=== PATIENT | female | born 1965 | race Caucasian/White ===

== ENCOUNTER 2017-11-05 07:33 | Inpatient (IN) ==
--- NOTE | 2017-11-03 18:03 | MH ---
cc: Rosangela Persaud MD DATE OF ADMISSION: 11/05/2017 HISTORY OF PRESENT ILLNESS: The patient is a 52-year-old white female, G1, P1, menopausal for 2 years, who presented to the office in October as a followup to finally getting her ultrasound done, which we ordered last year. She has been having a 2-year history of on and off left lower quadrant pain. She describes the pain as more dull in nature. It is not sharp, but does not really have any other associated symptoms, but it has been persistently present. The ultrasound did show she has a 2.9 cm fibroid in the left lateral side of the uterus. We have a comparison from 2010, where she was premenopausal where it did not show any fibroids. At that time in 2010, she did have a left ovarian cyst. I have discussed with her the significance of developing a fibroid postmenopausally especially one that is giving her pain in that we should try to have some type of tissue diagnosis on this fibroid because it raises the increased risk of a possible malignancy associated with the development postmenopausally. The patient understands that and she desires to proceed with surgery to remove the uterus in total along with the tubes and ovaries and send that for frozen section to see what is the makeup of this new fibroid. She is aware of the risks of the surgery including, and not limited to infection, bleeding, damage to internal organs requiring repair. PAST MEDICAL HISTORY: Negative. PAST SURGICAL HISTORY: Dilatation and curettage. MEDICATIONS: Currently are none. ALLERGIES: NONE. SOCIAL HISTORY: No tobacco, alcohol or drug use. She lives with her family and works. She is employed. FAMILY HISTORY: Noncontributory. D[employer]PERVISOR HISTORY: No abnormal Paps. No STDs. OB HISTORY: x1. REVIEW OF SYSTEMS: Negative. PHYSICAL EXAMINATION: VITAL SIGNS: Her weight is 207. Height 5 feet 4 inches, blood pressure 124/80, pulse of 70. BREASTS: Without masses, nodes or discharge. CHEST: Clear to auscultation bilaterally. CARDIAC: Regular rate and rhythm without murmur or gallop. ABDOMEN: Soft, nontender, nondistended. There is no hepatosplenomegaly. No CVA tenderness. There is some tenderness in the left lower quadrant. No rebound or guarding. PELVIC: Normal external female genitalia without lesion. Vaginal vault without lesions. Cervix without lesions. No cervical motion tenderness. Uterus palpates slightly enlarged. It is tender in the left side, not on the right side. LABORATORY VALUES: On the patient are as I described in the HPI and she has a Pap smear from 2017, which is negative. ASSESSMENT: New onset of left lower quadrant pain and new onset of a postmenopausal fibroid. PLAN: Will be for total abdominal hysterectomy with bilateral salpingo-oophorectomy. MD ERICKA George/sherrill , 05:04 PM , 05:11 PM
[2017-11-05] MEDS ORDERED: Sodium Chlor 0.9% Inj 500 ML IV.CONT ONE (08:45)
[2017-11-05] MEDS ORDERED: Metoprolol Tartrate 25 MG Tablet PO ONE (08:45)
[2017-11-05] MEDS ORDERED: Chlorhexidine Gluconate 2% 1 Pack (2 Cloths) TOPICAL ONE (08:45)
[2017-11-05] MEDS ORDERED: ceFAZolin 2 GM IV; once IV.SIG ONE (09:00)
[2017-11-05 09:11] LABS: Hematocrit 44.2 % (35.0-46.0); Hemoglobin 15.2 gm/dL (11.6-15.3); Mean Corpuscular HGB Conc 34.3 % (32.0-36.0); Mean Corpuscular Hemoglobin 31.1 pg (27.0-34.0); Mean Corpuscular Volume 90.6 fL (80.0-100.0); Mean Platelet Volume 8.6 fL (7.0-11.0); Platelet Count 212 th/mm3 (150-450); Red Blood Count 4.88 mil/mm3 (4.00-5.30); Red Cell Distribution Width 12.8 % (11.6-17.2)
[2017-11-05] MEDS ORDERED: Ketorolac Inj 30 MG/ML (IVP) Vial IV.PUSH ONE (11:45)
[2017-11-05] MEDS ORDERED: Lidocaine PF 1% Inj 5 ML Syringe OTHER ONE (11:45)
[2017-11-05] MEDS ORDERED: Glycopyrrolate Inj 1 MG/5 ML Syringe IV.PUSH ONE (11:45)
[2017-11-05] MEDS ORDERED: Neostigmine Inj 5 MG/5 ML Syringe IV.PUSH ONE (11:45)
[2017-11-05] MEDS ORDERED: Promethazine 25 MG Supp RECTAL PRN ×2 (13:12→15:00)
[2017-11-05] MEDS ORDERED: Morphine Inj 4 MG/ML Vial IV.PUSH PRN (13:21)
[2017-11-05] MEDS ORDERED: *Meperidine Inj 25 MG/ML Vial PERIprocedural Use ONLY ONE (13:40)
[2017-11-05] MEDS ORDERED: Morphine Inj 4 MG/ML Vial ONE (13:46)
[2017-11-05] MEDS ORDERED: fentaNYL Citrate Inj 100 MCG/2 ML Ampul ONE (13:46)
[2017-11-05] MEDS ORDERED: *morphine SULFATE 4 MG/ML PERIprocedure ONLY ONE (13:47)
[2017-11-05] MEDS ORDERED: Bupivacaine PF 0.5% Inj 30 ML Vial ONE (14:00)
[2017-11-05] MEDS ORDERED: Bupivacaine Liposomal PF 1.3% Inj 20 ML Vial ONE (14:01)
[2017-11-05] MEDS: Morphine Inj 4 MG/ML Vial IV.PUSH PRN ×4 (15:15→21:15)
[2017-11-05] MEDS: Ketorolac Inj 30 MG/ML (IVP) Vial IV.PUSH PRN (16:20)
--- NOTE | 2017-11-05 23:10 | MP ---
cc: Rosangela Persaud MD DATE OF OPERATION: 11/05/2017 PREOPERATIVE DIAGNOSIS: Postmenopausal development of a fibroid and pelvic pain. POSTOPERATIVE DIAGNOSIS: Postmenopausal development of a fibroid and pelvic pain, with a rapid frozen section revealing a benign leiomyoma. PROCEDURE: Total abdominal hysterectomy with bilateral salpingo-oophorectomy. SURGEON: Rosangela Persaud MD ANESTHESIA: General endotracheal. FINDINGS IN SURGERY: Included a small uterus measuring about 10-week size with a left lateral fibroid palpable. Normal appearing tubes and ovaries. Normal appearing pelvic cavity. No studding along the diaphragm. Normal appearing bowel. ESTIMATED BLOOD LOSS: 100 mL. COMPLICATIONS: None. PROCEDURE IN DETAIL: After proper consents were obtained, the patient was taken to the operating room where general endotracheal anesthesia was applied. She was then placed in the dorsal position, sterilely prepped and draped. A Bates catheter was placed. At this time, using a sharp knife, I made a Pfannenstiel skin incision. This was carried down to the fascia using a Bovie cautery. The fascia was nicked in the midline and extended superolaterally on each side. We then had sharp dissection of the muscles off of the fascia. We then identified the peritoneum, grasped with 2 hemostats and entered sharply with Metzenbaum scissors. This incision was extended superiorly and inferiorly paying close attention to the bladder. The bladder blade was developed. At this time, we went ahead and palpated the uterus, which is about 10-week size with a palpable fibroid in the left lateral side. Normal appearing tubes and ovaries. No pelvic adhesive disease noted. At this time, I placed the O'Moreno-O'Bunn retractor and packed away the bowel easily. I then placed 2 long Kellys along the cornua of the uterus for manipulation. At this time, I came across the round ligament on the left side with the Vaishali clamps, clamping, cutting, placing 0 Vicryl suture through that. I then developed a window in the broad ligament and came across the infundibulopelvic ligament using a curved Kelsey clamp x2, clamping, cutting, placing freehand a free tie of 0 Vicryl, followed by suture ligature of 0 Vicryl with excellent hemostasis noted of that pedicle. I then developed the bladder flap anteriorly from the left side, skeletonized uterine vessels on the left side, and came across the uterine vessels using a curved Kelsey clamp, clamping, cutting, placing 0 Vicryl suture. I then took a bite with a straight Josue down along the cardinal ligament, clamping, cutting, placing 0 Vicryl suture through that. I then did the exact same process on the right side without difficulty. I then continued down along the cervix using the straight Josue until we were down to where the cervix ended. I came across from under the cervix using the curved Zeppelin clamps, clamping, cutting off the as this specimen and handing it for rapid frozen section, which came back as benign leiomyoma and benign tubes and ovaries. At this time, we went ahead and closed one little area of the middle of the cuff with sutures of 0 Vicryl in an interrupted [id number] fashion. I then irrigated copiously. Hemostasis was assured. We overlaid the vaginal cuff with Interceed. I then removed the retractor. All counts were correct, and we closed the muscles using 0 Vicryl suture x1. I then closed the fascia using 0 Vicryl, starting at each apex and ending in the midline in a running fashion. Irrigation was performed of the subcutaneous tissue. Hemostasis was achieved with the Bovie cautery. We then closed the skin with a 4-0 Monocryl in a subcuticular fashion. Counts were correct and the patient was stable to the recovery room. MD ERICKA George/rw/do , 08:19 PM , 08:28 PM
[2017-11-06] MEDS: Ketorolac Inj 30 MG/ML (IVP) Vial IV.PUSH PRN ×3 (00:07→15:56)
[2017-11-06] MEDS: Morphine Inj 4 MG/ML Vial IV.PUSH PRN (06:06)
--- NOTE | 2017-11-06 12:59 | P.PNOB ---
Subjective Post op day: 1 Interval history: Pt with good pain control, tolerating po, ambulating a small amount so far Objective Vital Signs/I&O: Vital Signs 11/05/17 13:30 11/05/17 13:45 11/05/17 14:00 Temperature 97.6 F Pulse Rate 70 72 68 Respiratory Rate 18 18 18 Blood Pressure 139/82 142/70 H 145/80 H Pulse Oximetry 95 95 95 11/05/17 14:15 11/05/17 14:30 11/05/17 14:55 Temperature 98 F Pulse Rate 68 66 65 Respiratory Rate 18 20 20 Blood Pressure 145/80 H 160/86 H 160/84 H Pulse Oximetry 95 95 95 11/05/17 15:05 11/05/17 15:35 11/05/17 17:15 Temperature 98.1 F Pulse Rate 60 72 70 Respiratory Rate 18 18 17 Blood Pressure 181/92 H 181/94 H 164/85 H Pulse Oximetry 11/05/17 19:59 11/06/17 00:00 11/06/17 04:10 Temperature 97.7 F 98.7 F 97.7 F Pulse Rate 86 76 62 Respiratory Rate 18 16 16 Blood Pressure 147/87 H 151/85 H 151/82 H Pulse Oximetry 97 11/06/17 09:10 11/06/17 12:00 Temperature 98.1 F 98.5 F Pulse Rate 60 56 L Respiratory Rate 20 17 Blood Pressure 140/87 115/69 Pulse Oximetry 100 Intake & Output 11/05/17 11/06/17 11/06/17 18:59 06:59 18:59 Intake Total 1100 / 1100 Output Total 835 / 835 1900 / 1900 Balance 265 / 265 -1900 / -1900 Weight 93.2 kg Intake: Anesthesia Amount 1100 / 1100 Output: Estimated Blood Loss 100 / 100 Urine Amount (Catheter) 735 / 735 1900 / 1900 Indwelling Urethral Catheter 735 / 735 1900 / 1900 Other: # Voids 1 Weight On Admission 93.2 kg Result Diagrams: 11/05/17 08:35 Objective Remarks: GENERAL: Well-nourished, well-developed patient. CARDIOVASCULAR: Regular rate and rhythm without murmurs, gallops, or rubs. RESPIRATORY: Breath sounds equal bilaterally. No accessory muscle use. ABDOMEN/GI: Abdomen soft, non-tender, bowel sounds present. Incision: Clean, dry and intact. GENITOURINARY: EXTREMITIES: No cyanosis or edema, non-tender, without signs of DVT. Medications and IVs: Active Medications Ketorolac Tromethamine (Toradol Inj) 30 mg IV.PUSH Q6H PRN PRN Reason: PAIN SCALE 3 TO 5 Stop: 11/10/17 14:59 Last Admin: 11/06/17 08:50 Dose: 30 mg Miscellaneous Information ([facility]) 0 each OTHER UNSCH PRN PRN Reason: SEE LABEL COMMENTS Stop: 11/06/17 13:37 Morphine Sulfate (Morphine Inj) 2 mg IV.PUSH Q2H PRN PRN Reason: PAIN 6-10;IF UNABLE TO TAKE PO Last Admin: 11/06/17 06:06 Dose: 2 mg Ondansetron HCl (Zofran Inj) 4 mg IV.PUSH Q6H PRN PRN Reason: NAUSEA OR VOMITING Last Admin: 11/05/17 21:47 Dose: 4 mg Ondansetron HCl (Zofran Odt) 4 mg PO Q6H PRN PRN Reason: NAUSEA OR VOMITING Oxycodone/Acetaminophen (Percocet 5/325 Mg) 1 tab PO Q4H PRN PRN Reason: PAIN SCALE 3 TO 5 Last Admin: 11/06/17 08:50 Dose: 1 tab Promethazine HCl (Phenergan) 25 mg PO Q6H PRN PRN Reason: NAUSEA OR VOMITING Promethazine HCl (Phenergan Supp) 25 mg RECTAL Q6H PRN PRN Reason: NAUSEA OR VOMITING Sodium Chloride (Ns Flush) 2 ml IV.FLUSH BID LASHAY Last Admin: 11/05/17 21:17 Dose: 2 ml Sodium Chloride (Ns Flush) 2 ml IV.FLUSH PRN PRN PRN Reason: FLUSH AFTER USING IV ACCESS Assessment and Plan - Attending Attestation POD # 1 s/p NATAN/BSO doing well, routine care
[2017-11-07] MEDS ORDERED: Senna/Docusate Sodium 8.6/50 MG Tablet PO ONE (09:45)
[2017-11-07 14:01] VITALS: BP 131/75; PULSE 72; RESP 20; TEMP 98.3; O2SAT 100
== END 2017-11-07 14:07 | disposition home or self-care (01) ==
LOC: HSDI 07:33 → H1EA 15:06
PROVIDERS: ADMIT Obstetrics & Gynecology; ATTEND Obstetrics & Gynecology